=== PATIENT | male | born 1975 | race Caucasian/White ===

== ENCOUNTER 2024-11-14 22:36 | Emergency (ER) | payer OTHER ==
[~2024-11-14] VITALS: Ht 167.6 cm; Wt 87.0 kg
[2024-11-14 22:45] VITALS: TEMP 37.1; O2SAT 100
[2024-11-14 23:26] LABS: BASOPHILS % 0.7 % (0.0-2.0); EOSINOPHILS % 1.6 % (0.0-5.0); HEMATOCRIT. 41.2 % (42.0-52.0); HEMOGLOBIN. 13.8 g/dL (14.0-18.0); LYMPHOCYTES % 18.6 % (20.0-50.0); MEAN CORPUSCULAR HEMOGLOBIN 31.4 pg (28.0-32.0); MEAN CORPUSCULAR HGB CONC 33.6 g/dL (31.0-37.0); MEAN CORPUSCULAR VOLUME 93.5 fL (80.0-94.0); MEAN PLATELET VOLUME 7.9 fl (7.4-10.4); MONOCYTES % 6.4 % (2.0-8.0); NEUTROPHILS % 72.7 % (40.0-76.0); PLATELET 198 x1000/uL (130-400); RED BLOOD CELL COUNT 4.41 mill/uL (4.7-6.1); RED CELL DISTRIBUTION WIDTH 14.6 % (11.6-14.6); WHITE BLOOD COUNT 9.4 x1000/uL (4.5-11.0)
[2024-11-14 23:31] LABS: CHLORIDE 102 mEq/L (98-107); SODIUM 131 mEq/L (136-145)
[2024-11-14 23:32] LABS: CALCIUM 9.7 mg/dL (8.7-10.4); CARBON DIOXIDE 22 mEq/L (21-32)
[2024-11-14 23:37] LABS: GLUCOSE 299 mg/dL (70-105); UREA NITROGEN BLOOD 12 mg/dL (9-23)
[2024-11-14 23:38] LABS: ETHANOL BLOOD < 10 mg/dL (<10); TROPONIN I HIGH SENSITIVITY 40 ng/L (3.0-53)
[2024-11-15] MEDS: MORPHINE SULFATE 4 MG/ML INJ (FOR IV/IM USE) IV NR (00:03)
[2024-11-15 01:00] VITALS: BP 126/86; PULSE 103; RESP 19; O2SAT 96
== END 2024-11-15 02:16 | disposition left against medical advice (07) ==
LOC: ER 22:36 → EDBEDREQ 11-15 01:24 → EDBEDREQDT 11-15 01:24 → EDBEDREQTM 11-15 01:24 → ER 11-15 02:16
DX: R07.89 Other chest pain (principal); E11.9 Type 2 diabetes mellitus without complications; I10 Essential (primary) hypertension; I25.2 Old myocardial infarction; Z53.29 Procedure and treatment not carried out because of patient's decision for other reasons; Z79.4 Long term (current) use of insulin; Z95.5 Presence of coronary angioplasty implant and graft
CPT/HCPCS: 80048; 80320; 83880; 83690; 85025; 84484; 36415; 71045; 93005; 99285; 96374; J2270; Z7610; G0480